=== PATIENT | male | born 1930 | race Caucasian/White ===

== ENCOUNTER 2016-10-16 08:29 | Outpatient (CLI) | payer BC | END 2016-10-16 20:24 | disposition home or self-care (01) | LOC: SRD 08:29 | PROVIDERS: ATTEND Internal Medicine | DX: K57.30 Diverticulosis of large intestine without perforation or abscess without bleeding (principal) | CPT/HCPCS: 74270-TC ==

== ENCOUNTER 2019-11-26 08:16 | Emergency (ER) | payer BC ==
[~2019-11-26] VITALS: Ht 167.6 cm; Wt 62.1 kg
[2019-11-26 08:16] VITALS: BP_SYST 176
--- NOTE | 2019-11-26 08:16 | NUR ---
BROUGHT IN BY [facility], PLACED IN BED #2 AND TRIAGED. REPORT GIVEN TO BECK
--- NOTE | 2019-11-26 08:35 | NUR ---
ER at bedside examining patient.
--- NOTE | 2019-11-26 08:40 | NUR ---
Pt came to ER after falling in bathroom at home and hitting head. Pt presesnts with bilateral arm skin tears and L head abrasion. Pt AO4, resting in [facility].
--- NOTE | 2019-11-26 10:09 | NUR ---
Pt resting in [facility] at this time, no distress noted
[2019-11-26] MEDS ORDERED: BACITRACIN 1 GM OINT TP ONE (12:43)
[2019-11-26 13:57] VITALS: BP_SYST 176
--- NOTE | 2019-11-26 13:58 | NUR ---
Patient given written and verbal discharge instructions and verbalizes understanding. ER MD discussed with patient the results and treatment provided. Patient in stable condition. ID arm band removed. Patient educated on pain management and to follow up with PMD. Pain Scale 0. Opportunity for questions provided and answered. Medication side effect fact sheet provided.
== END 2019-11-26 13:58 | disposition home or self-care (01) ==
LOC: SED 08:16
DX: S00.81XA Abrasion of other part of head, initial encounter (principal); E78.5 Hyperlipidemia, unspecified; N18.9 Chronic kidney disease, unspecified; W01.10XA Fall on same level from slipping, tripping and stumbling with subsequent striking against unspecified object, initial encounter; Y93.01 Activity, walking, marching and hiking; Y92.89 Other specified places as the place of occurrence of the external cause; Y99.8 Other external cause status
CPT/HCPCS: 70450-TC; 72125-TC; 99285